=== PATIENT | female | born 1990 | race Caucasian/White ===

== ENCOUNTER 2023-03-21 19:59 | Outpatient (REF) | payer OTHER, SELFPAY ==
[2023-03-26 10:08] LABS: Age Gdln ACOG Testing Note (.); HPV Aptima Negative (Negative); IGP, Aptima HPV, rfx 16/18,45 Note (.)
== END 2023-03-21 20:00 | disposition home or self-care (01) ==
LOC: LAB 19:59
PROVIDERS: PCP Obstetrics & Gynecology; Visit Provider Obstetrics & Gynecology
DX: Z01.419 Encounter for gynecological examination (general) (routine) without abnormal findings (principal)
CPT/HCPCS: 87624; G0145

== ENCOUNTER 2024-04-09 20:38 | Outpatient (REF) | payer OTHER, SELFPAY ==
[2024-04-13 17:10] LABS: Age Gdln ACOG Testing Note (.); HPV Aptima Negative (Negative); IGP, Aptima HPV, rfx 16/18,45 Note (.)
== END 2024-04-09 20:39 | disposition home or self-care (01) ==
LOC: LAB 20:38
PROVIDERS: PCP Obstetrics & Gynecology; Visit Provider Obstetrics & Gynecology
DX: Z01.419 Encounter for gynecological examination (general) (routine) without abnormal findings (principal)
CPT/HCPCS: 88175

== ENCOUNTER 2025-04-24 20:00 | Outpatient (REF) | payer OTHER, SELFPAY ==
--- OUTSIDE RECORDS SUMMARY | 2022-01-22 15:24 | XMS_ITS | Continuity of Care Document ---
Author Organization [facility] Address [address] [place] [address] Phone Care Team Providers Care Border Measurer Name Role Phone Peng HU, Frandy Unavailable Unavailable Allergies, Adverse Reactions, Alerts Substance Reaction Status Criticality No Known Allergies Active No Inform ation Medications Medication Instructions Dosage Effective Dates (start - stop) Status Comments Euthyrox 25 mcg tablet - Act gumaro spironolactone 25 mg tablet - Active Procedures Procedure Date 18-30mmHg Below knee gradient compressio n stockin Office/Oupt E&M New Pt 45 Mins 22 Duplex Scan-extrem Veins; Uni/ Advance Directives Directive Yes / No Effective Date File Name No Information Encounters Encounter Description Practice Location Reason(s) For Visit Diagnoses Date Provider Providers Copied on Encounter [facility], [address], [place], [id number], tel:[phone] [place] Lymphedema, not elsewhere classified 2 Peng HU Frandy. [address], [address], [facility] [place], [address], [place]. tel:[phone] Referring Provider: Perry Barriga MD, [address], [place], [address]. tel:[phone] Office/Oupt E&M New Pt 45 Mins [facility], [address], [place], [id number], [place] tel:[phone] [place] Body mass index (BMI) 25.0-25.9, adultLymphedema , not elsewhere classifiedPain in left lower legHereditary lymphedema 2 Peng HU Frandy. [address], [address], [facility], [place], [facility] [place], [place]. [phone] Referring Provider: Perry Barriga MD, [address], [place], [address]. tel:[phone] [facility], [address], [place], [id number], [place] tel:[phone] [facility]R - [place] [facility] Chronic venous hypertension w oth comp of l low extremOther specified soft tissue disorders 2 Peng HU Frandy. [address], [facility], [place], [facility] [place], [place]. tel:[phone] Referring Provider: Perry Barriga MD, [address], [facility], [place], [facility]. tel:[phone] Family History Family Member Type Diagnosis Age At Onset No Information Payers Payer name Insurance type Covered republican ID Kim lee(annie) [facility] [id number] Social History Type Description Quantity Date Captured Comments Sex Female Smoking Status No Information Chief Complaint And Reason For Visit No Information Reason For Referral Reason For Referral No Information Plan Of Treatment Date Type Action Status Goal Tobacco cessation counseling completed Goal Diet education completed History Of Present Illness Encounter Date Complaint History Of Prese nt Illness No Information Functional Status Date Functional Assessmen t No Information Instructions Date Instruction Additional Infor mation Patient education booklet given Related to Lymphedema (NOS) Giving Encouragement to Exercise Related to Body mass index [BMI] 25.0-25.9, adult Diet education Related to Body mass index [BMI] 25.0-25.9, adult Assessments Type Assessment Date No Information Patient Care Teams Name Effective Dates (start - stop) Status Members No Information
--- OUTSIDE RECORDS SUMMARY | 2025-04-24 16:00 | XMS_ITS | Encounter Summary ---
Author Organization [facility] Address [address] [place] [address] Care Team Providers Care Fur Operator Name Role Phone Unavailable Primary Care Provider Unavailabl e Reason for Visit * Reason Comments Well Women Visit Encounter Details Date Type Department Care Team (Late st Contact Info) Description 04/24/2025 4:00 PM EDT Office Visit [facility] [place] [facility] [address] [place] [phone] Tyree Patel DO [address] [place] [address] Well woman exam with routine gynecological exam Social History Tobacco Use Types Packs/Day Years Used Date Smoking Tobacco: Former Cigarettes Smokeless Tobacco: Never Alcohol Use Standard Drinks/Week Comments Never 0 (1 standard drink = 0.6 oz pur e alcohol) Comments No Sex and Gender Information Value Date Recorded Sex Assigned at Female 03/14/2023 11:40 AM EDT Legal Sex Female 11:47 PM EDT Gender Identity Female 03/14/2023 11:40 AM EDT Sexual Orientation Straight 03/14/2023 11 :40 AM EDT documented as of this encounter Last Filed Vital Signs Vital Sign Reading Time Taken Comments Blood Pressure 130/78 04/24/2025 4:32 PM EDT Pulse - - Temperature - - Respiratory Rate - - Oxygen Saturation - - Inhaled Oxygen Concentration - - Weight 94.5 kg (208 lb 6.4 oz) 04/24/2025 4:32 P M EDT Height - - Body Mass Index 38.12 04/09/2024 10:48 AM EDT documented in this encounter Progress Notes * Inna Murcia, AIRCRAFT SALES REPRESENTATIVE - 04/24/2025 4:00 PM EDT Reason for Appointment: Patient ID: Slo Suazo is a 34 y.o. female who presents for Well Women Visit Patient presents today for Annual Exam. MEDICATIONS No current outpatient medications ALLERGIES Allergies Allergen Reactions Latex Hives, Itching, Rash and Swelling Other Reaction(s): Unknown PROBLEMS Active Ambulatory Problems Diagnosis Date Noted No Active Ambulatory Problems Resolved Ambulatory Problems Diagnosis Date Noted No Resolved Ambulatory Problems Past Medical History: Diagnosis Date Abnormal Pap smear of cervix Adenocarcinoma in situ of cervix Atyp squam cell of undet signfc cyto smr crvx (ASC-US) Decreased platelet count Depression Encounter for screening for human papillomavirus (HPV) Genital warts 2009 HPV (human papilloma virus) infection 2009 Mood disturbance Morbid obesity with BMI of 40.0-44.9, adult ([facility]) Pap smear to confirm normal after abnormal result Well woman exam HISTORY PAST MEDICAL HISTORY SOCIAL HISTORY Past Medical History: Diagnosis Date Abnormal Pap smear of cervix Adenocarcinoma in situ of cervix Atyp squam cell of undet signfc cyto smr crvx (ASC-US) Decreased platelet count Depression Encounter for screening for human papillomavirus (HPV) Genital warts 2009 HPV (human papilloma virus) infection 2009 Mood disturbance Morbid obesity with BMI of 40.0-44.9, adult ([facility]) Pap smear to confirm normal after abnormal result Well woman exam Social History Tobacco Use Smoking status: Former Current packs/day: 0.00 Types: Cigarettes Smokeless tobacco: Never Substance Use Topics Alcohol use: Never Drug use: Never FAMILY HISTORY Family History Problem Relation Name Age of Onset Diabetes Maternal Grandfather Marcos Suazo Stroke Maternal Grandfather Marcos Suazo Cancer Son Khai SURGICAL HISTORY Past Surgical History: Procedure Laterality Date CERVICAL BIOPSY W/ LOOP ELECTRODE EXCISION 2017 LEEP REVIEW OF SYSTEMS Review of Systems: Review of Systems Constitutional: Negative. HENT: Negative. Eyes: Negative. Respiratory: Negative. Cardiovascular: Negative. Gastrointestinal: Negative. Genitourinary: Negative. Musculoskeletal: Negative. Skin: Negative. Neurological: Negative. All other systems reviewed and are negative. Hematological: Negative. Endocrine: Negative. Allergic/Immunologic: Negative. OBJECTIVE Objective: Physical Exam Constitutional: Appearance: Normal appearance. She is well-developed. Genitourinary: Vulva normal. Breasts: Breasts are soft. Right: Normal. Left: Normal. Cardiovascular: Rate and Rhythm: Normal rate and regular rhythm. Pulmonary: Effort: Pulmonary effort is normal. Breath sounds: Normal breath sounds. Abdominal: General: Bowel sounds are normal. There is no distension. Palpations: Abdomen is soft. Tenderness: There is no abdominal tenderness. There is no guarding or rebound. Musculoskeletal: General: No swelling. Normal range of motion. Right lower leg: No edema. Left lower leg: No edema. Neurological: Mental Status: She is alert and oriented to person, place, and time. Skin: General: Skin is warm and dry. Psychiatric: Mood and Affect: Mood normal. Behavior: Behavior normal. Vitals and nursing note reviewed. Exam conducted with a truck body repairer present. Vitals: Estimated body mass index is 38.12 kg/m?? as calculated from the following: Height as of 24: 5' 2 . Weight as of this encounter: 208 lb 6.4 oz. BP: 130/78 Patient's last menstrual period was 04/09/2025. ASSESSMENT & PLAN ICD-10-CM 1. Well woman exam with routine gynecological exam Z01.419 Pap Smear HPV DNA probe, amplified Annual Exam: Patient presents today for an annual exam. Patient states she is doing well and has no complaints. Pap was obtained without difficulty. Orders Placed This Encounter Procedures HPV DNA probe, amplified Follow Up: Patient is to return in one year for annual unless needed otherwise. Documented by Inna Murcia NP on behalf of: Inna Murcia NP documented in this encounter Plan of Treatment Scheduled Orders Name Type Priority Associated Diagnoses Orde r Schedule Pap Smear Pathology and Cytology Routine Well woman exam with routine gynecological exam Ordered: 04/24/2025 HPV DNA probe, amplified Microbiology Routine Well woman exam with routine gynecological exam Ordered: 04/24/2025 documented as of this encounter Visit Diagnoses Diagnosis Well woman exam with routine gynecological exam Routine gynecological examination documented in this encounter
--- OUTSIDE RECORDS SUMMARY | 2025-04-24 20:04 | XMS_ITS | Clinical Summary ---
Author Organization [facility] Address [address] [place] [address] Care Team Providers Care Director Trade Name Role Phone Unavailable Primary Care Provider Unavailabl e Allergies Active Allergy Reactions Criticality Noted Date Comments Latex Hives,Itching,Rash,S well ing Low 03/18/2023 Other Reaction(s): Unknown Medications No known medications Encounters Date Type Department Care Team Description 04/24/2025 4:00 PM EDT Office Visit [facility] [address] [place] [address] Tyree Patel DO Well woman exam with routine gynecological exam 04/24/2025 Bamboo flowsheet [facility] [address] [place] [address] Tyree Patel DO from Last 3 Months Family History Medical History Relation Name Comments Diabetes Maternal Grandfather Marcso Suazo Stroke Maternal Grandfather Marcos Suazo Cancer Son 2 G[place] Relation Name Status Comments Daughter 1 Alive Daughter 2 Alive Daughter 3 Alive Maternal Grandfather Marcos Suazo Son 1 Alive Son 2 G[place] Alive Social History Tobacco Use Types Packs/Day Years [...] Orientation Straight 03/14/2023 11 :40 AM EDT Last Filed Vital Signs Vital Sign Reading Time Taken Comments Blood Pressure 130/78 04/24/2025 4:32 PM EDT Pulse - - Temperature - - Respiratory Rate - - Oxygen Saturation - - Inhaled Oxygen Concentration - - Weight 94.5 kg (208 lb 6.4 oz) 04/24/2025 4:32 P M EDT Height 157.5 cm (5' 2 ) 04/09/2024 10:48 AM EDT Body Mass Index 38.12 04/09/2024 10:48 AM EDT Plan of Treatment Not on file Insurance [employer]
--- OUTSIDE RECORDS SUMMARY | 2025-04-24 20:04 | XMS_ITS | Clinical Summary ---
Author Organization [facility] Address [address] [place] [address] Care Team Providers Care Form Tamping Machine Operator Name Role Phone Unavailable Primary Care Provider Unavailabl e Allergies Active Allergy Reactions Criticality Noted Date Comments Latex Swelling,Itching 06/23/2017 Medications no122/iron/folic acid ( MULTI ORAL) Take by mouth. Active Active Problems Problem Noted Date Diagnosed Date Cervix carcinoma in situ 07/15/2017 Overview (07/15/2017): Added automatically from request for surgery [id number] Family History Relation Status Comments Father Alive Mother Alive Social History Tobacco Use Types Packs/Day Years Used Date Smoking Tobacco: Former Smokeless Tobacco: Never Alcohol Use Standard Drinks/Week Comments No 0 (1 standard drink = 0.6 oz pur e alcohol) Area Deprivation Index Answer Date Ru rded National Score (1-100), lower number is lower ri sk Not on file 07/31/2020 State Score (1-10), lower number is lower risk N ot on file 07/31/2020 Data from: https://www.neighborhoodatlas.medicine.[facility].edu/. Last address used for calculation Not on file 07/31/2020 Comments Unknown Sex and Gender Information Value Date Recorded Sex Assigned at Not on file Legal Sex Female 2:56 PM EDT Gender Identity Not on file Sexual Orientation Not on file Last Filed Vital Signs Vital Sign Reading Time Taken Comments Blood Pressure 130/73 02/17/2018 7:49 AM EDT Pulse 86 02/17/2018 7:49 AM EDT Temperature 36.8 C (98.3 F) 02/17/2018 7:49 AM EDT Respiratory Rate 16 02/17/2018 7:49 AM EDT Oxygen Saturation 98% 02/17/2018 7:49 AM EDT Inhaled Oxygen Concentration - - Weight 100.2 kg (221 lb) 02/17/2018 7:49 AM EDT Height 160 cm (5' 2.99 ) 02/17/2018 7:49 AM EDT Body Mass Index 39.16 02/17/2018 7:49 AM EDT Plan of Treatment Health Maintenance Due Date Last Done Comments Anxiety Screening 2008 Depression Screening 2008 HIV Screening 2008 Hepatitis C Screening 2008 DTaP,Tdap,Td Vaccine (1 - Tdap) 2009 Hepatitis B Vaccine (1 of 3 - 19+ 3-dose series) 09/13 Cervical Cancer Screening 2011 HPV Vaccine (1 - 3-dose SCDM series) 2017 Influenza Vaccine (#1) 2025 Insurance [facility] MEDICAID
--- OUTSIDE RECORDS SUMMARY | 2025-04-24 20:04 | XMS_ITS | Clinical Summary ---
Author Organization [facility] Address [address] [place] [address] Care Team Providers Care Book Cleaner Name Role Phone Physician, Non-Staff Primary Care Provider Unava ilable Allergies Active Allergy Reactions Criticality Noted Date Comments Latex 05/15/2018 Medications Vit-Iron Carbonyl-FA (PRENATABS RX) 29-1 MG TABS 03/15/2018 Active ibuprofen (ADVIL;MOTRIN) 800 MG tablet Take 1 tablet by mouth every 8 hours as needed for Pain 30 tablet 05/22/2018 Active docusate sodium (COLACE, DULCOLAX) 100 MG CAPS Take 100 mg by mouth 2 times daily 60 capsule 1 05/23/2018 Active sertraline (ZOLOFT) 50 MG tablet Take 1 tablet by mouth daily 30 tablet 3 05/23/2018 Active Active Problems Patient Care Coordination No te Formatting of this note migh t be different from the original. Late transfer of care in third trimester Pt son is hospitalized termite treater helper and pt desires care at the clinic and delivery at [place] All records scanned. See media section 05/10/18- MFM referral placed for Dx of GDM Problem Noted Date Diagnosed Date depression 05/23/2018 Overview (05/23/2018): Patient with history of depression with last three pregnancies. Started on Zoloft prior to DC from hospital. 39 weeks gestation of 05/22/2018 Shoulder dystocia during labor and delivery 08/2017 Overview (05/22/2018): weight 4565g 10lbs 1 oz, Shoulder dystocia lasting 1 minute. Patient counseled on recommendation for delivery should she have any future . Obesity 05/17/2018 GDMA1 05/10/2018 Overview (05/10/2018): 05/10/18- Failed one hour with previous provider- 188. GDM based on failed one hour. 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 Provider reccommended pap & colpo every trimester to monitor 11/09/17: Pap smear negative Patient will need repeat colpo 6 weeks Elv 1hr gtt (No 3hr gtt) 04/27/2018 Overview (05/05/2018): Patient had elevated 1 hour gtt of 188 (please see media section). Patient reports her previous provider ordered a 3 hour gtt that she did not complete. 04/27/18: random glucose: 93, Hgb A1c: 6.2 (prediabetes) Size > Dates 04/27/2018 Overview (04/27/2018): 04/27/18: Referral placed to [facility] for ultrasound Rh+/RI/GBS neg 04/27/2018 Overview (05/04/2018): Labs Blood Type/Rh: O pos Antibody Screen: negative Hemoglobin, Hematocrit, Platelets: 12.8 / 39.1 / 210 Rubella: immune T. Pallidum, IgG: non-reactive Hepatitis B Surface Antigen: negative HIV: negative Sickle Cell Screen: not available Gonorrhea: negative Chlamydia: negative Urine culture: negative, date: 10/22/2017 1 hour Glucose Tolerance Test: 188 3 hour Glucose Tolerance Test: Ordered but not completed Group B Strep: negative Cystic Fibrosis Screen: not available First Trimester Screen: not available MSAFP/Multiple Markers: not available Non-Invasive Testing: not available Anatomy US: Low lying posterior placenta, 3vc Late transfer of care 04/14/2018 Overview (04/27/2018): Late transfer of care from [place] - please see records scanned into the media section Patient's son hospitalized fci at [facility] secondary to brain tumor and patient now desires to deliver at [facility] Uterine contractions during BMI 40.0-44.9, adult Shoulder dystocia during labor and delivery, del ivered Vaginal delivery Family History Relation Name Status Comments Brother 1 Alive Brother 2 Alive Brother 3 Alive Father Alive Mother Alive Sister 1 Alive Sister 2 Alive Sister 3 Alive Social History Tobacco Use Types Packs/Day Years Used Date Smoking Tobacco: Former Smokeless Tobacco: Never Alcohol Use Standard Drinks/Week Comments No 0 (1 standard drink = 0.6 oz pur e alcohol) Comments No Sex and Gender Information Value Date Recorded Sex Assigned at Not on file Legal Sex Female 3:39 PM EST Gender Identity Not on file Sexual Orientation Not on file Last Filed Vital Signs Vital Sign Reading Time Taken Comments Blood Pressure 119/77 05/23/2018 7:52 AM EDT Pulse 78 05/23/2018 7:52 AM EDT Temperature 36.7 C (98.1 F) 05/23/2018 7:52 AM EDT Respiratory Rate 14 05/23/2018 7:52 AM EDT Oxygen Saturation - - Inhaled Oxygen Concentration - - Weight 109.8 kg (242 lb) 05/17/2018 9:21 AM EDT Height 158.8 cm (5' 2.5 ) 05/17/2018 9:21 AM EDT Body Mass Index 43.56 05/17/2018 9:21 AM EDT Plan of Treatment Health Maintenance Due Date Last Done Comments Depression Monitoring 2002 Varicella vaccine (1 of 2 - 13+ 2-dose series) 2003 HIV screen 2005 Hepatitis C screen 2008 DTaP/Tdap/Td vaccine (1 - Tdap) 2009 Hepatitis B vaccine (1 of 3 - 19+ 3-dose series) 2009 Pap smear 2011 A1C test (Diabetic or Prediabetic) 04/27/20192017 Cervical cancer screen 2020 HPV (without or with Pap) 2020 COVID-19 Vaccine (1 - 2023-2 5 season) 2024 Flu vaccine (#1) 03/22/2025 HPV vaccine (No Doses Required) Completed Hepatitis A vaccine Aged Out No longe r eligible based on patient's age to complete this topic Hib vaccine Aged Out No longer eligi ble based on patient's age to complete this topic Meningococcal (ACWY) vaccine Aged Out No longer eligible based on patient's age to complete this topic Meningococcal B vaccine Aged Out No l onger eligible based on patient's age to complete this topic Pneumococcal 0-49 years Vaccine Aged Out No longer eligible based on patient's age to complete this topic Polio vaccine Aged Out No longer elig ible based on patient's age to complete this topic Procedures Procedure Name Priority Date/Time Associated Diagnosis Comments HEMOGLOBIN A1C Routine 04/27/2018 4:12 PM EDT from Last 3 Months or Most Recently Relevant to Health Maintenance Results * (ABNORMAL) Hemoglobin A1C (04/27/2018 4:12 PM EDT) Hemoglobin A1C 6.2(H) 4.0 - 6.0 % 04/27/2018 8:41 PM EDT [employer] Estimated Avg Glucose 131 mg/dL 04/27/2018 8:41 PM EDT [employer] Comment: The ADA and AACC recommend providing the estimated average glucose result to permit better patient understanding of their HBA1c result. 04/27/2018 4:12 PM EDT 04/27/2018 4:13 PM EDT us Rodrick Isaac MD CHEMISTRY ORDERABLES Eileen wilcox Result [employer] [address] [place] [address], [facility] [phone] from Last 3 Months or Most Recently Relevant to Health Maintenance Insurance [address] [place] [address] [facility] PLAN Advance Directives * Full Code (Latest Code Status on File) Date Activated Date Inactivated Comments 05/22/2018 12:33 PM 05/23/2018 3:21 PM * Full Code Date Activated Date Inactivated Comments 05/22/2018 9:01 AM 05/22/2018 12:33 PM Care Teams Book Cleaner Relationship Specialty Start Date End Date Physician, Non-Staff PCP - General 04/06/18
--- OUTSIDE RECORDS SUMMARY | 2025-04-24 20:04 | XMS_ITS | Encounter Summary ---
Author Organization [facility] Address [address] [place] [address] Care Team Providers Care Echometer Engineer Name Role Phone Unavailable Primary Care Provider Unavailabl e Encounter Details Date Type Department Care Team (Late st Contact Info) Description 11/01/2024 Orders Only [facility] [address] [place] [address] Kina Jurado ND [address] [place] [address] Social History Tobacco Use Types Packs/Day Years [...] AM EDT documented as of this encounter Plan of Treatment Not on file documented as of this encounter Procedures Procedure Name Priority Date/Time Associated Diagnosis Comments PAP SMEAR Routine 04/09/2024 12:00 AM EDT documented in this encounter Results * Pap Smear (04/09/2024 12:00 AM EDT) Swab Cervical swab / Unknown us Tyree Jorge DO LAB CYTOLOGY ORDERABLES Final Re sult EXTERNAL LAB documented in this encounter Visit Diagnoses Not on filedocumented in this encounter
--- OUTSIDE RECORDS SUMMARY | 2025-04-24 20:04 | XMS_ITS | Encounter Summary ---
Author Organization [facility] Address [address] [place] [address] Care Team Providers Care Stereoplotter Operator Name Role Phone Unavailable Primary Care Provider Unavailabl e Encounter Details Date Type Department Care Team (Late st Contact Info) Description 04/24/2025 Monikao flowsheet [facility] [address] [place] [address] Tyree Patel DO [address] [place] [address] Social History Tobacco Use Types Packs/Day Years [...] on file documented as of this encounter Visit Diagnoses Not on filedocumented in this encounter
--- OUTSIDE RECORDS SUMMARY | 2025-04-24 20:07 | XMS_ITS | CCD ---
Author Organization [facility] Care Team Providers Care Dryer Operator Name Role Phone MAHDI, WILLIE Unavailable Unavailable JORGEMARYANN JOSE Unavailable Unavailable MAHDI, WILLIE Unavailable Unavailable MAHDI, WILLIE Unavailable Unavailable OBAYUWANA, ALPHONSUS Unavailable Unavailable PHYSICIAN, NON-STAFF Unavailable Unavailable MAYNOR, SUZI S Unavailable Unavailable MAYNOR, SUZI S Unavailable Unavailable PHYSICIAN, NON-STAFF Unavailable Unavailable JORGE, DR WOLF Attending Unavailable WEST, DR MORRIS Hernandez Consulting Unavailable REQUEST, NONE LISTED Primary Care Unavaila ble JORGE, DR WOLF Admitting Unavailable JORGE, DR WOLF Consulting Unavailable JORGE, DR WOLF Attending Unavailable JORGE, DR WOLF Consulting Unavailable REQUEST, NONE LISTED Primary Care Unavaila ble JORGE, DR WOLF Admitting Unavailable JORGE, DR WOLF Attending Unavailable JORGE, DR WOLF Consulting Unavailable JORGE, DR WOLF Admitting Unavailable REQUEST, NONE LISTED Primary Care Unavaila ble JORGE, MARYANN Attending Unavailable Unavailable Primary Care Provider Unavailabl e Allergies Allergy Classification Reported Allergen(s) Allergy Type Date of Onset Reaction(s) Facility (6 sources) Latex; Translations: [LATEX] Propensity to adverse reactions to drug (disorder) 4 Hives, Itching, Rash, Swelling [facility] Repository Problems Problem Classification Problem Date Documented Date Episodic/Chronic Diabetes mellitus without complication (2 sources) Impaired glucose tolerance (oral); Translations: [Impaired glucose tolerance (oral)] Onset: 04-27-2018 Episodic Immunizations and screening for infectious disease (1 source) Encounter for screening for human papillomavirus (HPV); Translations: [ENC SCREENING HUMAN PAPILLOMAVIRUS] Onset: 09-21-2022 Episodic Nonmalignant breast conditions (3 sources) Unspecified lump in unspecified breast; Translations: [UNSPECIFIED LUMP IN UNSPEC BREAST] Onset: 10-01-2022 Episodic Other complications of (2 sources) Supervision of high risk , unspecified, third trimester; Translations: [Supervision of high risk , unspecified, third trimester] Onset: 04-27-2018 Episodic Other screening for suspected conditions (not mental disorders or infectious disease) (4 sources) Encounter for screening for malignant neoplasm of cervix; Translations: [ENC SCREENING MALIG NEOPLASM CERV] Onset: 09-20-2022 Episodic Unclassified (4 sources) 39 weeks gestation of ; Translations: [35 weeks gestation of ] Onset: 04-27-2018 Unclassified (1 source) Unspecified lump in the left breast, overlapping quadrants; Translations: [UNS LUMP LT BREAST OVRLPNG QUADRNTS] Onset: 10-07-2022 Results Test Name Value Interpretation Reference Range Facility IGP,APTIMA HPV,AGE GDLNon AGE GDLN ACOG TESTING Note . [facility] Comment on above: TESTS RESULT FLAG UN ITS REF RANGE LAB Clinician Provided Cytology Information Source.............Cervix;Endocervix No. of containers..01 ThinPrep Vial Age Algo ACOG Brenna... 30-65 01 FLAG LEGEND: L-Low Normal,H-High Normal,LL-Alert Low,HH-Alert High <-Panic Low,>-Panic High,A-Abnormal,AA-Critical Abnormal Performed at: 01 =G [address] [place] [address] Bhumi Hernandez MD, HPV APTIMA Negative Negative [facility] Comment on above: This nucleic acid am plification test detects fourteen high- risk HPV types (16,18,31,33,35,39,45,51,52,56,58,59,66,68) without differentiation. Performed at: = - [address], [place] [id number] Driver Engineer: Bhumi Hernandez MD, Phone: [phone] Performed at: - [address], [place] [id number] Driver Engineer: Bhumi Hernandez MD, Phone: [phone] IGP, APTIMA HPV, RFX 16/18,45 Note . [facility] Comment on above: TESTS RESULT FLAG UN ITS REF RANGE LAB DIAGNOSIS: 02 NEGATIVE FOR INTRAEPITHELIAL LESION OR MALIGNANCY. Specimen adequacy: 02 Satisfactory for evaluation. Endocervical and/or squamous metaplastic cells (endocervical component) are present. Performed by: Alfie Red, Form Tamper (ASCP) . 02 Note: Note 02 The Pap smear is a screening test designed to aid in the detection of premalignant and malignant conditions of the uterine cervix. It is not a diagnostic procedure and should not be used as the sole means of detecting cervical cancer. Both false-positive and false-negative reports do occur. Test Methodology: Note 02 This liquid based ThinPrep(R) pap test was screened with the use of an image guided system. HPV Genotype Reflex Note 02 Criteria not met, HPV Genotype not performed. FLAG LEGEND: L-Low Normal,H-High Normal,LL-Alert Low,HH-Alert High <-Panic Low,>-Panic High,A-Abnormal,AA-Critical Abnormal Performed at: 02 WB [facility] [address] [address] Bhumi Hernandez MD, BRUSH-SPATULA CERVIX ENDOCERVIX [facility] [employer] MG MAMM DIAGNOSTIC 3D ALTHEA CA Don 10-01-2022 MG MAMM DIAGNOSTIC 3D ALTHEA CAD Patient: FAVIAN PENALOZA Exam Date: 10/01/2022 : 1990 Gender:F Ordering : DR MARYANN PATEL . Admission #: [id number] Family : Order #: [id number] CLICK HERE TO VIEW EXAM RADIOLOGY REPORT PROCEDURE: MAMMOGRAM DIAGNOSTIC 3D BILATERAL CAD, 10/01/2022, 09:34 ULTRASOUND BREAST LEFT LIMITED, 10/01/2022, 10:21 COMPARISON: None. INDICATIONS: Breast lump Calculator Name NCI Breast Cancer Risk Assessment Tool 5 Year Breast Cancer Risk Not Applicable. Lifetime Breast Cancer Risk Not Applicable. Personal Breast Cancer No Personal Ovarian Cancer No Treatments None Family Cancers Son with medulloblastoma cancer at age 2. LOCATION: [facility] BREAST COMPOSITION: Heterogeneously dense,which may obscure small masses. FINDINGS: DIAGNOSTIC CATEGORY 2--BENIGN FINDING: Scattered benign-appearing lymph nodes are present. RIGHT BREAST: No significant suspicious finding. LEFT BREAST: No significant suspicious finding. [place] marker indicates a palpable mass 9 o'clock position left mid breast. No mammographic or ultrasound abnormality. Further evaluation should be based on clinical and physical exam RECOMMENDATIONS: CLINICAL EVALUATION. PLEASE NOTE: A NORMAL MAMMOGRAM DOES NOT EXCLUDE THE POSSIBILITY OF BREAST CANCER. A CLINICALLY SUSPICIOUS PALPABLE LUMP SHOULD BE BIOPSIED. Dictated by: Morris Traore MD on 10/01/2022 at 10:41 Approved by: Morris Traore MD on 10/01/2022 at 10:45 Normal [facility] US BREAST LEFT LIMITEDon US BREAST LEFT LIMITED Patient: CAFAVIAN Exam Date: 10/01/2022 : 1990 Gender:F Ordering : DR MARYANN PATEL . Admission #: [id number] Family : Order #: [id number] CLICK HERE TO VIEW EXAM RADIOLOGY REPORT PROCEDURE: MAMMOGRAM DIAGNOSTIC 3D BILATERAL CAD, 10/01/2022, 09:34 ULTRASOUND BREAST LEFT LIMITED, 10/01/2022, 10:21 COMPARISON: None. INDICATIONS: Breast lump Calculator Name NCI Breast Cancer Risk Assessment Tool 5 Year Breast Cancer Risk Not Applicable. Lifetime Breast Cancer Risk Not Applicable. Personal Breast Cancer No Personal Ovarian Cancer No Treatments None Family Cancers Son with medulloblastoma cancer at age 2. LOCATION: [facility] BREAST COMPOSITION: Heterogeneously dense,which may obscure small masses. FINDINGS: DIAGNOSTIC CATEGORY 2--BENIGN FINDING: Scattered benign-appearing lymph nodes are present. RIGHT BREAST: No significant suspicious finding. LEFT BREAST: No significant suspicious finding. [place] marker indicates a palpable mass 9 o'clock position left mid breast. No mammographic or ultrasound abnormality. Further evaluation should be based on clinical and physical exam RECOMMENDATIONS: CLINICAL EVALUATION. PLEASE NOTE: A NORMAL MAMMOGRAM DOES NOT EXCLUDE THE POSSIBILITY OF BREAST CANCER. A CLINICALLY SUSPICIOUS PALPABLE LUMP SHOULD BE BIOPSIED. Dictated by: Morris Troare MD on 10/01/2022 at 10:41 Approved by: Morris Traore MD on 10/01/2022 at 10:45 [facility] PAP ACOG PANEL 2: 30 to 65on 09-26-2022 . . Normal [facility] Comment on above: Result Comment: Perf ormed at: WB Performed By: #### [id number] #### [facility] [address] [address] [address] Sandra Heaton Age Gdln ACOG Testing 30-65 Normal [facility] Comment on above: Performed By: #### [id number] #### [facility] [address] [address] [address] Sandra Heaton DIAGNOSIS: Comment Normal [facility] Comment on above: Result Comment: NEGA TIVE FOR INTRAEPITHELIAL LESION OR MALIGNANCY. PREDOMINANCE OF COCCOBACILLI CONSISTENT WITH SHIFT IN VAGINAL MATHIEU IS PRESENT. Performed at: WB Performed By: #### [id number] #### [facility] [address] [place] [address] Dr. Sandra Heaton HPV Aptima Negative Normal Negative [facility] Comment on above: Result Comment: This nucleic acid amplification test detects fourteen high-risk HPV types (16,18,31,33,35,39,45,51,52,56,58,59,66,68) without differentiation. Performed at: =G Performed By: #### 4 [id number] #### [facility] [address] [place] [address] Dr. Sandra Heaton HPV Genotype Reflex Comment Normal [facility] Comment on above: Result Comment: Crit eria not met, HPV Genotype not performed. Performed at: WB Performed By: #### 4 [id number] #### [facility] [address] [place] [address] Dr. Sandra Heaton Methodology: Comment Normal [facility] Comment on above: Result Comment: This liquid based ThinPrep(R) pap test was screened with the use of an image guided system. Performed at: WB Performed By: #### [id number] #### [facility] [address] [place] [address] Dr. Sandra Heaton Note: Comment Normal [facility] Comment on above: Result Comment: The Pap smear is a screening test designed to aid in the detection of premalignant and malignant conditions of the uterine cervix. It is not a diagnostic procedure and should not be used as the sole means of detecting cervical cancer. Both false-positive and false-negative reports do occur. . Performed at: WB Performed By: #### [id number] #### [facility] [address] [place] [address] Dr. Sandra Heaton Performed by: Comment Normal [facility] Comment on above: Result Comment: Yao Landry Form Tamper (ASCP) Performed at: WB Performed By: #### [id number] #### [facility] [address] [place] [address] Dr. Sandra Heaton Specimen adequacy: Comment Normal [facility] Comment on above: Result Comment: Sati sfactory for evaluation. Endocervical and/or squamous metaplastic cells (endocervical component) are present. Performed at: WB Performed By: #### 4 [id number] #### [facility] [address] [place] [address] Dr. Sandra Heaton Pap IG, rfx Aptima HPV ASCUo n 02-22-2022 . . Normal [facility] Comment on above: Performed By: #### P [id number] #### [facility] [address] [place] [address] Dr. Sandra Heaton DIAGNOSIS: Comment Normal [facility] Comment on above: Result Comment: NEGA TIVE FOR INTRAEPITHELIAL LESION OR MALIGNANCY. Performed By: #### P APHR7A #### [facility] [address] [place] [address] Dr. Sandra Heaton Methodology: Comment [facility] Comment on above: Result Comment: This liquid based ThinPrep(R) pap test was screened with the use of an image guided system. Performed By: #### P APHR7A #### [facility] [address] [place] [address] Dr. Sandra Heaton Note: Comment [facility] Comment on above: Result Comment: The Pap smear is a screening test designed to aid in the detection of premalignant and malignant conditions of the uterine cervix. It is not a diagnostic procedure and should not be used as the sole means of detecting cervical cancer. Both false-positive and false-negative reports do occur. . Performed By: #### P APHR7A #### [facility] [address] [place] [address] Dr. Sandra Heaton Performed by: Comment Normal [facility] Comment on above: Result Comment: Nia Powell, Form Tamper (ASCP) Performed By: #### P APHR7A #### [facility] [address] [place] [address] Dr. Sandra Heaton Reflex Criteria: Comment [facility] Comment on above: Result Comment: The HPV DNA reflex criteria were not met with this specimen result therefore, no HPV testing was performed. . Performed By: #### P APHR7A #### [facility] [address] [place] [address] Dr. Sandra Heaton Specimen adequacy: Comment Normal [facility] Comment on above: Result Comment: Sati sfactory for evaluation. Endocervical and/or squamous metaplastic cells (endocervical component) are present. Performed By: #### P APHR7A #### [facility] [id number] Sandra Heaton Progress Noteon 05-23-2018 HIM IP Note OR Attic Fans Mechanic Normal [facility] T.pallidum Ab Screenon 05-23 T.pallidum Ab Screen NONREACTIVE Normal NR [facility] Comment on above: Result Comment: T. p allidum antibodies are not detected.There is no serological evidence of infection with T. pallidum (early primary syphilis cannot be excluded). Retest in 2-4 weeks if syphilis is clinically suspect. Performed By: #### G LYHGB, GLU ####[address] [address] CBC with Diffon 05-22-2018 Abs. Basophil <0.03 Normal 0.00-0.20 [facility] Comment on above: Performed By: #### C DP, TREP ####[address] [address] Abs.Imm.Granulocyte 0.05 k/uL Normal 0.00-0.30 [facility] Comment on above: Performed By: #### C DP, TREP ####[facility] [place] [address] Abs.Neutrophil (Seg) 5.24 k/uL Normal 1.50-8.10 [facility] Comment on above: Performed By: #### C DP, TREP ####[facility] [place] [address] Basophils/100 WBC Auto (Bld) 0 % Normal 0-2 [facility] Comment on above: Performed By: #### C DP, TREP ####[address] [place] [address] Eosinophils Auto #/vol (Bld) 0.06 10*3/uL Normal 0.00-0.44 [facility] Comment on above: Performed By: #### C DP, TREP ####[address] [address] Eosinophils/100 WBC Auto (Bld) 1 % Normal 1-4 [facility] Comment on above: Performed By: #### C DP, TREP ####[address] [address] Erythrocyte distribution width Auto Ratio (RBC) 14.2 % Normal 11.8-14.4 [facility] Comment on above: Performed By: #### C DP, TREP ####[address] [address] Hematocrit Auto Volume Fraction (Bld) 34.7 % Low 36.3-47.1 [facility] Comment on above: Performed By: #### C DP, TREP ####[address] [address] Hemoglobin mass conc (Bld) 10.9 g/dL Low 11.9-15.1 [facility] Comment on above: Performed By: #### C DP, TREP ####[address] [address] Immature granulocytes #/vol (Bld) 1 % High 0 [facility] Comment on above: Performed By: #### C DP, TREP ####[address] [address] Lymphocytes Auto #/vol (Bld) 0.99 10*3/uL Low 1.10-3.70 [facility] Comment on above: Performed By: #### C DP, TREP ####[address] [address] Lymphocytes/100 WBC Auto (Bld) 14 % Low 24-43 [facility] Comment on above: Performed By: #### C DP, TREP ####[address] [address] MCH Auto Entitic mass (RBC) 25.2 pg Normal 25.2-33.5 [facility] Comment on above: Performed By: #### C DP, TREP ####[address] [address] MCHC Auto mass conc (RBC) 31.4 g/dL Normal 28.4-34.8 [facility] Comment on above: Performed By: #### C DP, TREP ####[address] [address] MCV Auto Entitic volume (RBC) 80.3 fL Low 82.6-102.9 [facility] Comment on above: Performed By: #### C DP, TREP ####[address] [address] Monocytes Auto #/vol (Bld) 0.62 10*3/uL Normal 0.10-1.20 [facility] Comment on above: Performed By: #### C DP, TREP ####[address] [address] Monocytes/100 WBC Auto (Bld) 9 % Normal 3-12 [facility] Comment on above: Performed By: #### C DP, TREP ####[address] [address] Neutrophil (Seg) 75 % High 36-65 [facility] Comment on above: Performed By: #### C DP, TREP ####[address] [address] NRBC Automated 0.0 per 100 WBC Normal 0.0 [facility] Comment on above: Performed By: #### C DP, TREP ####[address] [address] Platelet mean volume Auto Entitic volume (Bld) 11.0 fL Normal 8.1-13.5 [facility] Comment on above: Performed By: #### C DP, TREP ####[address] [address] Platelets Auto #/vol (Bld) 180 10*3/uL Normal 138-453 [facility] Comment on above: Performed By: #### C DP, TREP ####[address] [address] RBC Auto #/vol (Bld) 4.32 10*6/uL Normal 3.95-5.11 [facility] Comment on above: Performed By: #### C DP, TREP ####[address] [address] RBC morphology finding Nom (Bld) MICROCYTOSIS PRESENT Normal [facility] Comment on above: Performed By: #### C DP, TREP ####[address] [address] WBC Auto #/vol (Bld) 7.0 10*3/uL Normal 3.5-11.3 [facility] Comment on above: Performed By: #### C DP, TREP ####[address] [address] Auto Diff Performed NOT REPORTED Normal [facility] Comment on above: Performed By: #### C DP, TREP ####[address] [address] Platelets Auto #/vol (Bld) NOT REPORTED Normal [facility] Comment on above: Performed By: #### C DP, TREP ####[address] [address] WBC Morphology NOT REPORTED Normal [facility] Comment on above: Performed By: #### C DP, TREP ####[address] [address] Drug Scr, Abuse, Uron 2017 Amphetamine(s),Ur Negative Normal NEG [facility] Comment on above: Result Comment: (Pos itive cutoff 1000 ng/mL) Performed By: #### G LYHGB, GLU ####[address] [address] Barbiturate(s),Ur Negative Normal NEG [facility] Comment on above: Result Comment: (Pos itive cutoff 200 ng/mL) Performed By: #### G LYHGB, GLU ####[address] [address] Base excess Calculated molar conc (Bld) Negative Normal NEG [facility] Comment on above: Result Comment: (Pos itive cutoff 300 ng/mL) Performed By: #### G LYHGB, GLU ####[address] [address] Benzodiazepine(s) Negative Normal NEG [facility] Comment on above: Result Comment: (Pos itive cutoff 200 ng/mL) Performed By: #### G LYHGB, GLU ####[address] [address] Cannabinoid(s),Ur Negative Normal NEG [facility] Comment on above: Result Comment: (Pos itive cutoff 50 ng/mL) Performed By: #### G LYHGB, GLU ####[address] [address] Interpretive Info Assay provides medic al screening only. The absence of expected drug(s) and/or Normal [facility] Comment on above: Result Comment: meta bolite(s) may indicate diluted or adulterated urine, limitations of testing or timing of collection.Testing for legal purposes should be confirmed by another method. To request confirmation of test result, please call the lab within 7 days of sample submission. Performed By: #### G LYHGB, GLU ####[address] [address] Methadone Ql (U) Negative Normal NEG [facility] Comment on above: Result Comment: (Pos itive cutoff 300 ng/mL) Performed By: #### G LYHGB, GLU ####[address] [address] Opiate(s), Ur Negative Normal NEG [facility] Comment on above: Result Comment: (Pos itive cutoff 300 ng/mL) Performed By: #### G LYHGB, GLU ####[address] [address] Oxycodone, Urine Negative Normal NEG [facility] Comment on above: Result Comment: (Pos itive cutoff 100 ng/mL) Performed By: #### G LYHGB, GLU ####[address] [address] Phencyclidine, Ur Negative Normal NEG [facility] Comment on above: Result Comment: (Pos itive cutoff 25 ng/mL) Performed By: #### G LYHGB, GLU ####[address] [address] Buprenorphrine, Ur NOT REPORTED Normal NEG [facility] Comment on above: Performed By: #### G LYHGB, GLU ####[address] [address] MDMA, Urine NOT REPORTED Normal NEG [facility] Comment on above: Performed By: #### G LYHGB, GLU ####[facility] [address] [address] Methamphetamine, Ur NOT REPORTED Normal NEG [facility] Comment on above: Performed By: #### G LYHGB, GLU ####[address] [place], [place] [address] Propoxyphene,Urine NOT REPORTED Normal NEG [facility] Comment on above: Performed By: #### G LYHGB, GLU ####[facility] HospitalTeachStreetLiutbcfwohsp[address] [place], [place] [id number] Tricyclic antidepressants Screen Ql (U) NOT REPORTED Normal NEG [facility] Comment on above: Performed By: #### G LYHGB, GLU ####[facility] HospitalTeachStreetCveorcyxsorr[address] [place], [place] [id number] History and Physicalon 05-22 HIM IP Note OR Attic Fans Mechanic Normal [facility] Labor and Delivery Noteon HIM IP Note OR Attic Fans Mechanic Normal [facility] Progress Noteon 05-22-2018 HIM IP Note OR Attic Fans Mechanic Normal [facility] Surgical Pathologyon [facility] Surgical Pathology (NOTE)[id number] Y LABORATORIESCONSULTBOSTON REGIONAL [facility] PATHOLOGISTS [place] [facility]MENTANATOMIC [id number] [place] [phone] Fax: SURGICAL PATHOLOGY CONSULTATIONPatient Name: [facility]AVIAN [facility] Rec: [id number] Number: [id number]: 05/22/2018Received: 05/22/2018Reported: 05/23/2018 15:24-- Diagnosis --PLACENTA, CORD AND MEMBRANES, DELIVERY: -MATURE THIRD TRIMESTER PLACENTA WITH THREE-VESSEL CORD. -NEGATIVE FOR SIGNIFICANT ACUTE INFLAMMATION OR NEOPLASM.Marlon Lynn M.D.Electronically Signed Out 05/23/2018Clinical InformationPre-op Diagnosis: 27 Y/O, IUP @ 39 W, 0 D, GDMA1, OBESITY Operative Findings: , F, AP/9, WT; 10#, 1 OZ, PLACENTA, CORDAND MEMBRANESSource of Specimen1: PLACENTA CORD AND MEMBRANESGross Description FAVIAN PENALOZA, UNDESIGNATED Placenta with attached membranes andumbilical cord.UMBILICAL CORD Length: 20.0 cm Diameter: 1.5 cmTrue knots: NoNumber of vessels: 3Spiraling: HypospiraledInsertion into surface: ParacentralMEMBRANESColor: Rojas-serrano, focally opacifiedMeconium staining: NoFETAL SURFACEColor: Purple-rojas, with a normal array of surface vesselsSubchorionic fibrin: Patchy and marginal and involvesapproximately 15% of the discMATERNAL SURFACECotyledons: -Fragmented/torn: (Approximately 10%) and completeness cannotbe determined -Focal lesions: NoPlacental size: 19.0 x 18.0 x 4.0 cmShape: OvoidWeight: 688 gramsNumber of cassettes: 4cs tmMicroscopic Description Umbilical cord: Unremarkable Membranes: UnremarkableMeconium staining: NoInfarcts: NoIntervillous thrombi: NoSubchorionic fibrin: Not significantly increasedVillous maturation: AppropriateNucleated erythrocytes in villous capillaries: Not increasedOther: Few microcalcifications Normal [facility] Comment on above: Performed By: #### G LYHGB, GLU ####[employer] [place], [place] [id number] Type + Screenon 05-22-2018 Type + Screen Sample Expiration 05/25/2018 Arm Band Number BE [id number] ABO/Rh(D) O POSITIVE Antibody Screen NEGATIVE Normal [facility] Comment on above: Performed By: #### G LYHGB, GLU ####[address] [place] [address] Progress Noteon 05-17-2018 HIM IP Note OR Attic Fans Mechanic Normal [facility] Progress Noteon 05-15-2018 HIM IP Note OR Attic Fans Mechanic Normal [facility] HIM IP Note OR Attic Fans Mechanic Normal [facility] Progress Noteon 05-05-2018 HIM IP Note OR Attic Fans Mechanic Normal [facility] Rule Out Grp.B Strepon 04-30 Rule Out Grp.B Strep Specimen Description .VAGINAL SWAB Special Requests NOT REPORTED Culture NEGATIVE FOR GROUP B STREPTOCOCCI Report Status FINAL 04/30/2018 Normal [facility] Comment on above: Performed By: #### R OGBS ####[address]ie [address] [place] [address] Glucoseon 04-27-2018 Glucose mass conc 93 mg/dL Normal 70-99 [facility] Comment on above: Performed By: #### G LYHGB, GLU ####Aggie [address] [place] [address] Hemoglobin A1Con 04-27-2018 Glucose mass conc 131 mg/dL Normal [facility] Comment on above: Result Comment: The ADA and AACC recommend providing the estimated average glucose result to permit better patient understanding of their HBA1c result. Performed By: #### G LYHGB, GLU ####[facility] [address] [place], [place] [id number] Hemoglobin A1c/Hemoglobin.tota l mass fraction (Bld) 6.2 % High 4.0-6.0 [facility] Comment on above: Performed By: #### G LYHGB, GLU ####[facility] [address] [place], [place] [id number] Progress Noteon 04-27-2018 HIM IP Note OR [employer] Normal [facility] HIM IP Note OR [employer] Normal [facility] CNOVon 02-17-2018 CNOV Office Visit (GYNOSA) LUCI[facility]LO[facility] ([id number]) 1990 [facility]/17/18 8:00 AM WILLIE MORALES During your visit today, we recorded the following information about you: Temperature Pulse Respiration Blood pressure 98.3 degrees 86/minute 16/minute 130/73 Weight Height 100.2 kg 1.6 Lisa Morales MD 02/17/2018 8:21 AM SignedDATE OF SERVICE: February 17, 2018PROBLEM: Favian Penaloza is here for follow up of severe cervical dysplasiaSUBJECTIVE/HPI: Ms. Penaloza is a 26 year old female who presented todayfor evaluation and management of cervical dysplasia. She had abnormal pap smearthen she underwent LEEP procedure on 05/16/2017 which showed severedysplasia/squamous cell carcinoma in situ, stromal invasion was not recognized,but margins status was unknown as the specimen was received in multiple pieces.Then she was supposed to get her cone biopsy done with me but she found out sheis , currently she is at 25 weeks. She has been seeing Dr. Patel whodid colpo and pap about 6 weeks ago per patient.SUBJECTIVE:Overall doing well and no issue with pregnancyNo N/V, no CP or SOB. No problem with voiding or bowel movementOBJECTIVE:VITALS: BP 130/73 Pulse 86 Temp 36.8 ?C (98.3 ?F) Resp 16 Ht 160 cm(5' 2.99 ) Wt 100.2 kg (221 lb) LMP (LMP Unknown) SpO2 98% BMI39.16 kg/m?GENERAL: Patient is a well developed, well nourished female. She isAlert, oriented, pleasant and cooperative.SKIN: Color, texture, turgor normal. 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 I do recommendcolposcopy every trimester (10-12 weeks) by me or Dr. Patel. I do not havecolposcopy machine in my [place] office. I will defer to Dr. Patel for thecolposcopy part- After delivery, patient needs repeat colposcopy and pap 6 weeks .We will decide the next step after delivery based on this colpo and pap- Will need to get the result of her most recent colpo and pap- If Dr. Patel wants me to do the colpo, I need to see her in [place] [facility] 6 weeks or earlier if neededTotal face to face time 25 minutes and more that 50% spent on counseling thepatient and coordinating her care.Willie Morales MD, MPHA letter and a copy of this office note were sent to:Maryann Patel, [id number] [address]SD:No Pcp (PCP)Referring Provider: WILLIE MORALES [[id number]]Allergies As of Date: 02/17/2018 Noted Allergy ReactionLATEX 06/23/2017 7 - Swelling 9 - ItchingDate Reviewed: 02/17/2018Reviewed by: Willie Morales - Fully AssessedReason for Visit: Abnormal Pap [273] Cmt: Ref by Dr MartelloPrimary Visit Diagnosis:CARLOS III (cervical intraepithelial neoplasia grade III) with severe dysplasia [D06.9]Prescriptions as of 02/17/2018 Sig: MULTI ORAL Take by mouth.Problem List As Of Date 02/17/2018 Noted Resolved Cervix carcinoma in situ [D06.9] INVALID FOR* More... Status:Closed by WILLIE MORALES MD on 02/17/18 [facility] PRO[facility]ESS[facility] 02-17-2018 Protein HNO ID: [id number] thor: Willie Zayaservice: (none)Author Type: PhysicianType: Progress NotesFiled: 02/17/2018 8:21 AMNote Text:DATE OF SERVICE: February 17, 2018PROBLEM: Favian Penaloza is here for follow up of severe cervicaldysplasiaSUBJECTIV E/HPI: Ms. Penaloza is a 26 year old female who presentedtoday for evaluation and management of cervical dysplasia. She hadabnormal pap smear then she underwent LEEP procedure on 05/16/2017 whichshowed severe dysplasia/squamous cell carcinoma in situ, stromal invasionwas not recognized, but margins status was unknown as the specimen wasreceived in multiple pieces.Then she was supposed to get her cone biopsy done with me but she foundout she is , currently she is at 25 weeks. She has been seeing who did colpo and pap about 6 weeks ago per patient.SUBJECTIVE:Overall doing well and no issue with pregnancyNo N/V, no CP or SOB. No problem with voiding or bowel movementOBJECTIVE:VITALS: BP 130/73 Pulse 86 Temp 36.8 ?C (98.3 ?F) Resp 16 Ht160 cm (5' 2.99 ) Wt 100.2 kg (221 lb) LMP (LMP Unknown) VgV560% BMI 39.16 kg/m?GENERAL: Patient is a well developed, well nourished female.She is Alert, oriented, pleasant and cooperative.SKIN: Color, texture, turgor normal. No rashes or lesions.HEENT: Normocephalic, atraumatic, mucus membranes moist and no lesionsLUNGS: Normal effortsBREAST: deferred examPROCEDURES: NoneASSESSMENT:26 yo women with severe cervical dysplasia/SCC in situ with unknownmargins, currently at 25 [id number]:We had a long discussion regarding her treatment plan. I do recommendcolposcopy every trimester (10-12 weeks) by me or Dr. Patel. I do not havecolposcopy machine in my [place] office. I will defer to Dr. Patel forthe colposcopy part- After delivery, patient needs repeat colposcopy and pap 6 weekspostpartum. We will decide the next step after delivery based on thiscolpo and pap- Will need to get the result of her most recent colpo and pap- If Dr. Patel wants me to do the colpo, I need to see her in [facility] 6 weeks or earlier if neededTotal face to face time 25 minutes and more that 50% spent on counselingthe patient and coordinating her care.Willie Morales MD, MPHA letter and a copy of this office note were sent to:Maryann Patel, [id number] [facility] [address]HO:No Pcp (PCP) Normal [facility] PROGRESSon 07-16-2017 Protein HNO ID: [id number] thor: Willie Zayaservice: (none)Author Type: PhysicianType: Progress NotesFiled: 07/15/2017 11:01 PMNote Text:DATE OF SERVICE: 07/12/2017PROBLEM: Favian Penaloza is a consult from Dr. Patel for evaluation ofsevere cervical dysplasia/carcinoma in situ.SUBJECTIVE/HPI: Ms. Penaloza is a 26 year old female who presentedtoday for evaluation and management of cervical dysplasia. She hadabnormal pap smear then she underwent LEEP procedure on 05/16/2017 whichshowed severe dysplasia/squamous cell carcinoma in situ, stromal invasionwas not recognized, but margins status was unknown as the specimen wasreceived in multiple pieces.HISTORIES:PAST GYNECOLOGIC HISTORY:. LMP: No LMP recorded.History of abnormal pap: YesLast pap: recent one this yearLast HPV:Last mammogram:Last colonoscopy:PAST SURGICAL HISTORYProcedure Laterality Date- LEEP PROCEDURE ([facility] [employer] DEPT)_*FLPAST MEDICAL HISTORYDiagnosis Date- Cervical dysplasia- DVT (deep venous thrombosis) (HCC)No family history on file. Negative FH for cancerFamily history of breast, ovarian, uterine or colon cancer: NoFamily history of VTE: NoSOCIAL HISTORYSocial HistorySubstance Use Topics- Smoking status: Former Smoker- Smokeless tobacco: Never Used- Alcohol use NoOccupation:Marital Status: SingleREVIEW OF SYSTEMS:GENERAL: No recent weight loss, fever, chills, malaise or fatigue.HEENT: No changes in hearing or vision, frequent or severe headaches, nosebleeds or other nasal problems.NECK: No lumps, goiter, pain, significant neck swelling, or difficultyswallowing.RESPI RATORY: No shortness of breath, cough, wheezing, recent pneumonia(within last 6 weeks) or recent URI (within 2 weeks).CARDIOVASCULAR: No angina with activity or at rest, lower extremity edema,or palpitations. No recent MO (within 6 months), cardiac stent, cardiacsurgery, gangrene, or PVD. No history of hypertension.BREAST: No breast lumps, skin changes, nipple discharge, or adenopathy.GI: No abdominal pain, nausea, vomiting, diarrhea, or constipation. Noprior history of esophageal varicies or ascites. Patient denies drinking>2 alcoholic beverages a day.: No dysuria, gross hematuria, urinary frequency, urinary urgency, orincontinence. No history of renal failure, dialysis, or recent UTI (<6weeks).MUSCULOSKELETAL: No muscle weakness or joint pain.SKIN: No skin lesions, rashes, or itching.PSYCH: No sleep disturbances, depression, bipolar disorder, drugdependency/history of drug dependency, or recent psychosocial stressors.HEMATOLOGY/LYMPH OLOGY: No prolonged bleeding, bruising easily, swollennodes, or anemia. No prior history of a blood clot or clotting disorder.No prior history of a bleeding disorder. Not on chronicanticoagulant/plate let medications.ENDOCRINE: No cold or heat intolerance, polyuria, polydipsia, polyphagia,goiter, hot flashes or night sweats. No prior diagnosis of diabetes orthyroid disorder. No chronic steroid use.NEURO: No history of paralysis, stroke/TIA, seizures, tremors, syncope,or paresthesias.ECOG performance status is zero (fully active, able to carry on allpre-disease performance without restriction)Willie Morales MDOBJECTIVE:VITALS: BP 117/81 Pulse 88 Temp 36.3 ?C (97.4 ?F) (Oral) Resp 16 Ht 160 cm (5' 3 ) Wt 100.6 kg (221 lb 12.8 oz) BMI 39.29 kg/v4HKXEFRU: Patient is a well developed, well nourished female.She is Alert, oriented, pleasant and cooperative.SKIN: Color, texture, turgor normal. No rashes or lesions.HEENT: Normocephalic, atraumatic, mucus membranes moist and no lesionsNECK: Supple, no adenopathy; thyroid symmetric, normal size, no bruitsLUNGS: Clear to auscultation bilaterally.HEART: Regular rate and rhythm, no murmurs.BACK: No CVA tenderness or gross deformities.BREAST: deferred examABDOMEN: Abdomen soft, non-tender, no hepatosplenomegaly.PELVIC: External genitalia, anus and urethral meatus are normal inappearance and without lesions. Vagina and cervix are normal inappearance on speculum examination. Bimanual pelvic and rectovaginalexamination were negative for urethral, bladder or pelvic masses,parametrial thickening or cul-de-sac nodularity. Uterus normal size andnon-tender. There were no rectal masses.LOWER EXTREMITIES: No pitting edema, no palpable cords and no skinchanges.PROCEDURES: NoneASSESSMENT:26 yo women with severe cervical dysplasia/SCC in situ with [id number]:We discussed the result of her pathology, implication and outcome. Wediscussed treatment options and the plan was made to proceed with repeatcervical conization with knife cone. We discussed the rationale, risks andbenefits including its impact on subsequent pregnancies and she elected toproceed. Surgical consent signed.Total face to face time 60 minutes and more that 50% spent on counselingthe patient and coordinating her care.Willie Morales MD, MPHA letter and a copy of this office note were sent to:Maryann Patel, [id number] [address]N[place]:No Pcp (PCP) [facility] CNOVon 07-12-2017 CNOV Office Visit (GYNOSA) LUCIUS PENALOZA ([id number]) 1990 FDate Time Provider Kulfsdqcet26/21/17 12:40 PM WILLIE MORALES During your visit today, we recorded the following information about you: Temperature Pulse Respiration Blood pressure 97.4 degrees 88/minute 16/minute 117/81 Weight Height 100.6 kg 1.6 Lisa Morales MD 07/15/2017 11:01 PM SignedDATE OF SERVICE: 07/12/2017PROBLEM: Favian Penaloza is a consult from Dr. Patel for evaluation ofsevere cervical dysplasia/carcinoma in situ.SUBJECTIVE/HPI: Ms. Penaloza is a 26 year old female who presented todayfor evaluation and management of cervical dysplasia. She had abnormal pap smearthen she underwent LEEP procedure on 05/16/2017 which showed severedysplasia/squamous cell carcinoma in situ, stromal invasion was not recognized,but margins status was unknown as the specimen was received in multiple pieces.HISTORIES:PAST GYNECOLOGIC HISTORY:. LMP: No LMP recorded.History of abnormal pap: YesLast pap: recent one this yearLast HPV:Last mammogram:Last colonoscopy:PAST SURGICAL HISTORYProcedure Laterality Date- LEEP PROCEDURE ([facility] DEPT)_*FLPAST MEDICAL HISTORYDiagnosis Date- Cervical dysplasia- DVT (deep venous thrombosis) (HCC)No family history on file. Negative FH for cancerFamily history of breast, ovarian, uterine or colon cancer: NoFamily history of VTE: NoSOCIAL HISTORYSocial HistorySubstance Use Topics- Smoking status: Former Smoker- Smokeless tobacco: Never Used- Alcohol use NoOccupation:Marital Status: SingleREVIEW OF SYSTEMS:GENERAL: No recent weight loss, fever, chills, malaise or fatigue.HEENT: No changes in hearing or vision, frequent or severe headaches, nosebleeds or other nasal problems.NECK: No lumps, goiter, pain, significant neck swelling, or difficultyswallowing.RESPI RATORY: No shortness of breath, cough, wheezing, recent pneumonia (withinlast 6 weeks) or recent URI (within 2 weeks).CARDIOVASCULAR: No angina with activity or at rest, lower extremity edema, orpalpitations. No recent MO (within 6 months), cardiac stent, cardiac surgery,gangrene, or PVD. No history of hypertension.BREAST: No breast lumps, skin changes, nipple discharge, or adenopathy.GI: No abdominal pain, nausea, vomiting, diarrhea, or constipation. No priorhistory of esophageal varicies or ascites. Patient denies drinking ANDgt;2alcoholic beverages a day.: No dysuria, gross hematuria, urinary frequency, urinary urgency, orincontinence. No history of renal failure, dialysis, or recent UTI (ANDlt;6weeks).MUSCULOSKEL ETAL: No muscle weakness or joint pain.SKIN: No skin lesions, rashes, or itching.PSYCH: No sleep disturbances, depression, bipolar disorder, drugdependency/history of drug dependency, or recent psychosocial stressors.HEMATOLOGY/LYMPH OLOGY: No prolonged bleeding, bruising easily, swollen nodes,or anemia. No prior history of a blood clot or clotting disorder. No priorhistory of a bleeding disorder. Not on chronic anticoagulant/plateletmedi cations.ENDOCRINE: No cold or heat intolerance, polyuria, polydipsia, polyphagia,goiter, hot flashes or night sweats. No prior diagnosis of diabetes or thyroiddisorder. No chronic steroid use.NEURO: No history of paralysis, stroke/TIA, seizures, tremors, syncope, orparesthesias.ECOG performance status is zero (fully active, able to carry on all pre-diseaseperformance without restriction)Willie Morales MDOBJECTIVE:VITALS: BP 117/81 Pulse 88 Temp 36.3 ?C (97.4 ?F) (Oral) Resp 16 Ht 160cm (5' 3ANDquot;) Wt 100.6 kg (221 lb 12.8 oz) BMI 39.29 kg/v4AATTBKN: Patient is a well developed, well nourished female. She isAlert, oriented, pleasant and cooperative.SKIN: Color, texture, turgor normal. No rashes or lesions.HEENT: Normocephalic, atraumatic, mucus membranes moist and no lesionsNECK: Supple, no adenopathy; thyroid symmetric, normal size, no bruitsLUNGS: Clear to auscultation bilaterally.HEART: Regular rate and rhythm, no murmurs.BACK: No CVA tenderness or gross deformities.BREAST: deferred examABDOMEN: Abdomen soft, non-tender, no hepatosplenomegaly.PELVIC: External genitalia, anus and urethral meatus are normal in appearanceand without lesions. Vagina and cervix are normal in appearance on speculumexamination. Bimanual pelvic and rectovaginal examination were negative forurethral, bladder or pelvic masses, parametrial thickening or gru-yf-iffceehesykyt. Uterus normal size and non-tender. There were no rectal masses.LOWER EXTREMITIES: No pitting edema, no palpable cords and no skin changes.PROCEDURES: NoneASSESSMENT:26 yo women with severe cervical dysplasia/SCC in situ with unknown [id number]:We discussed the result of her pathology, implication and outcome. We discussedtreatment options and the plan was made to proceed with repeat cervicalconization with knife cone. We discussed the rationale, risks and benefitsincluding its impact on subsequent pregnancies and she elected to proceed.Surgical consent signed.Total face to face time 60 minutes and more that 50% spent on counseling thepatient and coordinating her care.Willie Morales MD, MPHA letter and a copy of this office note were sent to:Maryann Patel [id number] [address]IE:No Pcp (PCP)Referring Provider: MARYANN PATEL [[id number]]Allergies As of Date: 07/12/2017 Noted Allergy ReactionLATEX 06/23/2017 7 - Swelling 9 - ItchingDate Reviewed: 07/12/2017Reviewed by: Kathy Gaston - Fully AssessedReason for Visit: Cervical Cancer [522] Cmt: New patient consultationPrimary Visit Diagnosis:Carcinoma in situ of cervix, unspecified location [D06.9]Order(s):SURGICAL REQUEST - ELECTIVE [[id number]] Order #: [id number]: 1Problem List As Of Date: 07/12/2017(None) Status:Closed by WILLIE MORALES MD on 07/15/17 [facility] Vital Signs Date Time Vital Sign Value Performing Clinician Faci lity 04-24-2025 16:32-0400 Body mass index (BMI) [Ratio] 38.12 kg/m2 [employer] Work Phone: [facility] 04-24-2025 16:32-0400 Body weight 94.53 kg [employer] Work Phone: [facility] 04-24-2025 16:32-0400 Diastolic blood pressure 78 mm[Hg] [employer] Work Phone: [facility] 04-24-2025 16:32-0400 Systolic blood pressure 130 mm[Hg] [employer] Work Phone: [facility] Encounters Encounter Date Encounter Type Care Provider Facility Start: 04-24-2025 End: 04-24-2025 Patient encounter procedure [employer] Work Phone: [facility] [employer] Work Phone: Start: 04-24-2025 End: 04-24-2025 Periodic preventive med est patient 18-39 yrs Maryann Jorge DO Work Phone: [facility] Comment on above: Well woman exam with routine gynecological exam Start: 04-24-2025 End: 04-24-2025 Bamboo flowsheet Maryann Jorge DO Work Phone: [facility] Start: 04-24-2025 End: 04-24-2025 Bamboo flowsheet Maryann Jorge DO Work Phone: [facility] Start: 04-09-2024 End: 04-13-2024 Clinisync Result Encounter Maryann Jorge DO Work Phone: [facility] Unsolicited Start: 04-09-2024 End: 04-13-2024 Clinisync Result Encounter Maryann Jorge DO Work Phone: [facility] Unsolicited Start: 04-09-2024 End: 04-09-2024 ambulatory MARYANN PATEL Not Available Start: 10-01-2022 End: 10-02-[address] MARYANN PATEL Facility:[facility] Start: 09-20-2022 End: 09-20-[address] MARYANN PATEL Facility:[facility] Start: 02-19-2022 Encounter for cervic al smear to confirm findings of recent normal smear following initial abnormal smear DR MARYANN PATEL [facility] Start: 02-18-2022 End: 02-18-[address] MARYANN PATEL Facility:[facility] Start: 02-18-2022 End: 02-18-2022 Encounter for cervical smear to confirm findings of recent normal smear following initial abnormal smear DR MARYANN PATEL Facility:[facility] Start: 05-22-2018 End: 05-23-2018 Evaluation and management of inpatient SUZI Maria Isabel MCGUIRE [facility] Start: 04-27-2018 End: 04-28-2018 Patient encounter NEEMA KARISSA [facility] Start: 02-17-2018 End: 03-02-2018 Patient encounter WILLIE MORALES [facility] Start: 07-12-2017 End: 08-26-2017 Patient encounter WILLIE MORALES [facility] Procedures Date Procedure Procedure Detail Performing Clinician Start: 04-09-2024 IGP,APTIMA HPV,AGE GDLN Maryann [place] DO Work Phone: Start: 05-23-2018 DISCHARGE PATIENT JOB HANCOCK Start: 05-22-2018 SURGICAL PATHOLOGY BEN GALARZA [place] Start: 05-22-2018 AMBULATE PATIENT JOSHUA JEFFERS OBLAWR[facility] Start: 05-22-2018 ASSESS NEEMA OBREGINEUWKYAW Start: 05-22-2018 FULL CODE NEEMA OBREGINEUWANA Start: 05-22-2018 ICE TO AFFECTED AREA AL PHONSUS OBREGINELEX Start: 05-22-2018 MISCELLANEOUS NURSIN G CARE ORDER (SPECIFY) ALPHNNAMDIUS OBLAWRENCE Start: 05-22-2018 NOTIFY PHYSICIAN (SPECIFY) NEEMA KARISSA Start: 05-22-2018 NURSING COMMUNICATION A MOSES KARISSA Start: 05-22-2018 PLACE INTERMITTENT PNEUMATIC COMPRESSION DEVICE NEEMA OBREGINEUWKYAW Start: 05-22-2018 SALINE LOCK IV [facility]UR[facility]AU S [place] Start: 05-22-2018 STRAIGHT CATH A[facility] OBREGINEUWANA Start: 05-22-2018 TRANSFER PATIENT JOSHUA KENDRICKUWKYAW Start: 05-22-2018 VITAL SIGNS [facility] [place] Start: 05-22-2018 DIET CARB CONTROL JOB HATFIELD [place] Start: 05-22-2018 POC GLUCOSE FINGERSTICK NEEMA [place] Start: 05-22-2018 URINE DRUG SCREEN JOB HATFIELD OBREGINEUWANA Start: 05-22-2018 TYPE AND SCREEN [facility] US [place] Start: 05-22-2018 Blood count complete auto&auto difrntl wbc [facility] [place] Start: 05-22-2018 T. PALLIDUM AB ALPHNNAMDIU S [place] Start: 05-22-2018 PATIENT STATUS (DIRECT) BENNNAMDIUS KENDRICKUWKYAW Start: 04-27-2018 STREP B SCREEN, VAGI NAL / RECTAL ALPHNNAMDIUS [place] Start: 04-27-2018 Glucose quantitative blood xcpt reagent strip AURORA OBLAWRENCE Start: 04-27-2018 Hemoglobin glycosylated a1c BENNNAMDIUS HANCOCK Plan of Treatment Date Care Activity Detail Author Start: 04-24-2025 End: 04-24-2025 Patient encounter procedure 04/24/2025 4:00 PM EDT Office Visit [facility] [address] [id number] Maryann Patel DO [address] [place] [address] [facility] Cytology Cervical or vaginal smear or scraping study Pap Smear Pathology and Cytology Routine Well woman exam with routine gynecological exam Ordered: 04/24/2025 [facility] Work Phone: Comment on above: Ordered: 04/24/2025 Human papilloma viru s DNA [Presence] in Unspecified specimen by Probe with amplification HPV DNA probe, amplified Microbiology Routine Well woman exam with routine gynecological exam Ordered: 04/24/2025 [facility] Comment on above: Ordered: 04/24/2025 Payers Date Payer Category Payer Medicaid [employer] [place] [employer] [id number] 2018-Present [address] [place] [id number] 2018 Medicaid (Managed Care) [employer] [id number] 1990 Unknown [id number] 1990 Unknown [id number] 1990 Unknown [id number] 1990 Unknown [id number] 1990 Unknown [id number] 1990 Unknown [id number] 1959 Unknown [id number] Social History Date Type Detail Facility Start: 04-09-2024 Tobacco smoking stat [facility] Ex-smoker [facility] History of tobacco use Current smoker [facility] History of tobacco use Cigarette [facility]oker [facility] Start: 04-09-2024 Tobacco use and exposure Smokeless t obacco non-user [facility] Start: 04-09-2024 End: 04-24-2025 Alcoholic beverage intake Lifetime non-drinker (finding) [facility] Start: 04-09-2024 End: 04-24-2025 History of Social function [facility] Start: 04-09-2024 End: 04-24-2025 Tobacco use panel [facility] Start: 1990 Sex assigned at Female [facility] Start: 03-14-2023 Gender identity Identifies as female gender (finding) [facility] Start: 03-14-2023 Sexual orientation Heterosexual (fin ding) [facility] History of Present illness Narrative 04-24-2025 Inna Murcia NP - 04/24/2025 4:00 PM EDT Note Date & Type Note Facility 04-24-2025 History of Presen t illness Narrative Reason for Appointment: Patient ID: Favian Penaloza is a 34 y.o. female who presents [...] Morbid obesity with BMI of 40.0-44.9, [place] [place] to confirm normal after abnormal [...] Morbid obesity with BMI of 40.0-44.9, [place] [place] to confirm normal after abnormal result Well woman exam Social History Tobacco Use Smoking status: Former Current packs/day: 0.00 Types: Cigarettes Smokeless tobacco: Never Substance Use Topics Alcohol use: Never Drug use: Never FAMILY HISTORY Family History Problem Relation Name Age of Onset Diabetes Maternal Grandfather Marcos Penaloza Stroke Maternal Grandfather Marcos Penaloza Cancer Son Khai SURGICAL HISTORY Past Surgical History: Procedure Laterality Date CERVICAL BIOPSY W/ LOOP ELECTRODE EXCISION 2017 [facility] REVIEW OF SYSTEMS Review of Systems: Review [...] nursing note reviewed. Exam conducted with a rail car mechanic present. Vitals: Estimated body mass index is 38.12 kg/m as calculated from the following: Height as of 04/09/24: 5' 2 . Weight as of this [...] Inna Murcia NP documented in this encounter [facility] Evaluation note Note Date & Type Note Facility Evaluation note Diagnosis Well woman exam with routine gynecological exam Routine gynecological examination documented in this encounter [facility] Summary Purpose Family History No Family History Records FoundNo Family History Records FoundNo Family History Records FoundNo Family History Records Found Advance Directives No Advanced Directives Records FoundNo Advanced Directives Records FoundNo Advanced Directives Records FoundNo Advanced Directives Records Found Additional Source Comments INFORMATION SOURCE (unrecogn ized section and content) DATE CREATED AUTHOR 03/03/2018 [facility] DATE CREATED AUTHOR AUTHOR'S ORGANIZ ATION 06/22/2018 [facility] DATE CREATED AUTHOR AUTHOR'S ORGANIZ ATION 10/08/[address] [facility] DATE CREATED AUTHOR AUTHOR'S ORGANIZ ATION 04/10/2024 [facility] EPIC Reason for Visit (unrecogniz ed section and content) Reason Comments Well Women Visit FOR RECORDS PERTAINING TO PATIENTS WHO ARE OR HAVE BEEN ENROLLED IN A CHEMICAL DEPENDENCY/SUBSTANCEABUSE PROGRAM, SOME INFORMATION MAY BE OMITTED. This clinical summary was aggregated from multiple sources. Caution should be exercised in using it in the provision of clinical care. This summary normalizes information from multiple sources, and as a consequence, information in this document may materially change the coding, format and clinical context of patient data. In addition, data may be omitted in some cases. CLINICAL DECISIONS SHOULD BE BASED ON THE PRIMARY CLINICAL RECORDS. [facility] [employer] [facility]. provides no warranty or guarantee of the accuracy or completeness of information in this document.
[2025-04-29 15:12] LABS: Age Gdln ACOG Testing Note (.); IGP, Aptima HPV, rfx 16/18,45 Note (.)
== END 2025-04-24 20:01 | disposition home or self-care (01) ==
LOC: LAB 20:00
PROVIDERS: PCP Obstetrics & Gynecology; Visit Provider Nurse Practitioner Family
DX: Z01.419 Encounter for gynecological examination (general) (routine) without abnormal findings (principal)
CPT/HCPCS: 87624; 88175